=== PATIENT | female | born 1985 | race Caucasian/White ===

== ENCOUNTER 2020-07-10 08:26 | Outpatient (REF) | payer OTHER, SELFPAY | END 2020-07-10 08:27 | disposition home or self-care (01) | LOC: HO.HMGCLDS 08:26 | PROVIDERS: PCP Internal Medicine; Visit Provider Internal Medicine | DX: I10 Essential (primary) hypertension (principal) | CPT/HCPCS: 36415; 84443 ==

== ENCOUNTER 2020-11-18 11:12 | Outpatient (REF) | payer OTHER, SELFPAY ==
[2020-11-18 13:48] LABS: MANUAL DIFF FLAG NO
[2020-11-18 14:03] LABS: Basophils Percent Auto 0.4 % (0-2); Eosinophils Absolute Auto 0.1 X10*3/uL (0.0-0.4); Eosinophils Percent Auto 1.8 % (0-4); Hematocrit 39.4 % (37-47); Hemoglobin 13.1 g/dl (12.0-16.0); Imm Gran Abs Auto 0.04 X10*3/uL (0.00-0.03); Imm Gran Pct Auto 0.5 % (0.0-0.4); Lymphocytes Absolute Auto 2.2 X10*3/uL (1.2-4.9); Lymphocytes Percent Auto 27.5 % (20-40); Mean Corpuscular HGB Conc 33.2 g/dl (31.0-35.0); Mean Corpuscular Hemoglobin 29.2 pg (27.0-33.0); Mean Corpuscular Volume 87.8 fL (80-98); Mean Platelet Volume 10.7 fL (9.4-12.3); Monocytes Absolute Auto 0.5 X10*3/uL (0.1-1.2); Monocytes Percent Auto 5.8 % (2-11); Neutrophils Absolute Auto 5.1 X10*3/uL (2.0-8.3); Platelet Count 295 X10*3/uL (160-400); Red Blood Count 4.49 X10*6/uL (4.20-5.50); Red Cell Distribution Width 12.4 % (11.0-16.0); White Blood Count 7.9 X10*3/uL (4.8-10.8)
[2020-11-18 14:04] LABS: Glucose Urine UA NEG (NEG); Leukocyte Esterase Urine NEG (NEG); Nitrite Urine NEG (NEG); Specific Gravity - Urine >= 1.030 (1.005-1.025); Urine Blood NEG (NEG); Urine Ketones NEG (NEG); Urine Protein NEG (NEG-TRACE)
[2020-11-18 14:09] LABS: Appearance Urine CLEAR; Color Urine YELLOW
[2020-11-18 14:23] LABS: Alanine Aminotransferase 11 U/L (0-31); Albumin Level 4.4 g/dL (3.5-5.0); Alkaline Phosphatase 66 U/L (39-117); Anion Gap 12 (12-20); Aspartate Amino Transferase 12 U/L (5-31); Bilirubin Total 0.5 mg/dL (0.0-1.0); Blood Urea Nitrogen 9 mg/dL (9-16); Calcium 9.1 mg/dL (8.4-10.2); Carbon Dioxide 25 mmol/L (22-29); Chloride 106 mmol/L (96-108); Estimated Glomerular Filt Rate > 60; Glucose Random 92 mg/dL (60-115); Sodium 139 mmol/L (135-145); Total Protein 6.8 g/dL (6.5-8.0); Uric Acid 3.3 mg/dL (2.4-5.7)
[2020-11-18 14:29] LABS: Creatinine Urine 146.57 mg/dL; Protein/Creatinine Ratio, Ur 0.05 (<0.2); Total Protein Urine Random 8 mg/dL (<12)
[2020-11-18 14:32] LABS: Mucus Urine TRACE /LPF; RBC Urine 0 /HPF (0); Squamous Epithelial Cell Urine 2+ /LPF; WBC Urine 0 /HPF (0-4)
[2020-11-18 14:45] LABS: Vitamin D 25-OH Total 14.4 ng/mL (>30)
== END 2020-11-18 11:13 | disposition home or self-care (01) ==
LOC: HO.HMGCLDS 11:12
PROVIDERS: Visit Provider Internal Medicine
DX: I10 Essential (primary) hypertension (principal)
CPT/HCPCS: 36415; 80053; 81001; 82306; 84156; 84550; 85025

== ENCOUNTER 2021-06-23 07:36 | Outpatient (REF) | payer OTHER, SELFPAY ==
[2021-06-23 11:19] LABS: MANUAL DIFF FLAG NO
[2021-06-23 11:22] LABS: Basophils Percent Auto 0.4 % (0-2); Eosinophils Absolute Auto 0.1 X10*3/uL (0.0-0.4); Eosinophils Percent Auto 1.6 % (0-4); Hematocrit 40.9 % (37.0-47.0); Hemoglobin 13.4 g/dl (12.0-16.0); Imm Gran Abs Auto 0.02 X10*3/uL (0.00-0.03); Imm Gran Pct Auto 0.3 % (0.0-0.4); Lymphocytes Absolute Auto 2.2 X10*3/uL (1.2-4.9); Lymphocytes Percent Auto 32.3 % (20-40); Mean Corpuscular HGB Conc 32.8 g/dl (31.0-35.0); Mean Corpuscular Hemoglobin 29.1 pg (27.0-33.0); Mean Corpuscular Volume 88.9 fL (80.0-98.0); Mean Platelet Volume 11.2 fL (9.4-12.3); Monocytes Absolute Auto 0.5 X10*3/uL (0.1-1.2); Monocytes Percent Auto 7.1 % (2-11); Neutrophils Absolute Auto 3.9 x10*3/uL (2.0-8.3); Neutrophils Percent Auto 58.3 % (45-73); Platelet Count 290 X10*3/uL (160-400); Red Cell Distribution Width 12.7 % (11.0-16.0); White Blood Count 6.7 X10*3/uL (4.8-10.8)
[2021-06-23 11:57] LABS: Alanine Aminotransferase 10 U/L (0-31); Albumin Level 4.1 g/dL (3.5-5.0); Alkaline Phosphatase 75 U/L (39-117); Anion Gap 15 (12-20); Aspartate Amino Transferase 13 U/L (5-31); Bilirubin Total 0.5 mg/dL (0.0-1.0); Blood Urea Nitrogen 9 mg/dL (9-16); Calcium 9.2 mg/dL (8.4-10.2); Carbon Dioxide 22 mmol/L (22-29); Chloride 107 mmol/L (96-108); Cholesterol 182 mg/dL; Estimated Glomerular Filt Rate > 60; Glucose Fasting 96 mg/dL (60-99); HDL Cholesterol 71 mg/dL; LDL Cholesterol Calculated 99 mg/dl; Potassium 4.6 mmol/L (3.3-5.1); Sodium 139 mmol/L (135-145); Total Protein 6.7 g/dL (6.5-8.0); Triglycerides 63 mg/dL
== END 2021-06-23 07:37 | disposition home or self-care (01) ==
LOC: HO.HMGCLDS 07:36
PROVIDERS: PCP Internal Medicine; Visit Provider Internal Medicine
DX: Z00.01 Encounter for general adult medical examination with abnormal findings (principal); F41.9 Anxiety disorder, unspecified; I10 Essential (primary) hypertension
CPT/HCPCS: 36415; 80053; 80061; 85025

== ENCOUNTER 2021-12-10 14:40 | Outpatient (REF) | payer OTHER, SELFPAY ==
[2021-12-10 16:54] LABS: Alanine Aminotransferase 10 U/L (0-31); Albumin Level 4.3 g/dL (3.5-5.0); Alkaline Phosphatase 79 U/L (39-117); Anion Gap 12 (12-20); Aspartate Amino Transferase 14 U/L (5-31); Bilirubin Total 0.8 mg/dL (0.0-1.0); Blood Urea Nitrogen 8 mg/dL (9-16); Calcium 9.6 mg/dL (8.4-10.2); Carbon Dioxide 26 mmol/L (22-29); Chloride 106 mmol/L (96-108); Estimated Glomerular Filt Rate > 60; Glucose Random 87 mg/dL (60-115); Potassium 4.6 mmol/L (3.3-5.1); Sodium 139 mmol/L (135-145)
== END 2021-12-10 14:41 | disposition home or self-care (01) ==
LOC: HO.HMGCLDS 14:40
PROVIDERS: PCP Internal Medicine; Visit Provider Internal Medicine
DX: I10 Essential (primary) hypertension (principal)
CPT/HCPCS: 36415; 80053

== ENCOUNTER 2021-12-30 11:38 | Outpatient (REF) | payer OTHER, SELFPAY ==
[2021-12-30 12:29] LABS: Influenza A PCR NEGATIVE (Negative); Influenza B PCR NEGATIVE (Negative); Resp Syncy Virus RNA Qual PCR NEGATIVE (Negative); SARS COV2 PCR INHOUSE POSITIVE (Negative)
== END 2021-12-30 11:39 | disposition home or self-care (01) ==
LOC: HO.LNP 11:38
PROVIDERS: Visit Provider Internal Medicine
DX: Z20.822 Contact with and (suspected) exposure to COVID-19 (principal); M79.10 Myalgia, unspecified site; R51.9 Headache, unspecified; R68.83 Chills (without fever)
CPT/HCPCS: 0241U

== ENCOUNTER 2023-03-15 14:02 | Outpatient (AMB) | payer OTHER, SELFPAY ==
--- NOTE | 2023-03-15 14:04 | MHC.PC.OV ---
Vital Signs 03/15/23 14:09 Height 5 ft 6 in Weight 194 lb 6 oz BMI 31.4 BP 124/86 Blood Pressure Location Lt brachial Position Sitting Pulse 74 Pulse Source Pulse Oximeter Pulse Oximetry (%) 98 Oxygen Delivery Method Room Air Intake Visit Reasons: 6 month follow up Allergies No Known Allergies Allergy (Verified 03/15/23 14:10) Medication List - Last Reconciled 03/15/23 by Selene Varela MD losartan 100 mg PO DAILY 90 days nirmatrelvir-ritonavir 300 mg (150 mg x 2)-100 mg take TWO 150 mg tablets of nirmatrelvir with ONE 100 mg tablet of ritonavir twice daily for 5 days PO Tobacco use date assessed: 03/15/23 Dental Screening Dental Screen Date: 03/15/23 Did you have a dental visit in the last 12 months?: Yes Did you have a dental problem in the last 6 months where you did not have access to dental care?: No Was dental information given to patient?: No HPI 6 month follow up HPI Details Patient is 37-year-old female who was last seen May of last year and then did not come in for follow-up. She is due for labs explained to patient that it is highly important that periodic labs to monitor side effect of the medication otherwise it can cause more damage than good. Her blood pressure is controlled she is taking medication regularly. She is complaining of not been able to lose weight her BMI is 31.4 I have added thyroid test to the labs. Patient will return in 3 months for follow-up appointment and will go over the labs at that time [facility] Medical History Hypertension, essential Surgical History No pertinent past surgical history Social History Housing: House Alcohol intake: current Alcohol intake frequency: a few times a month Patient Tobacco Use Status: Never used Tobacco e-Cigarette/Vaping Use: Never Used Second Hand Smoke Exposure: No service: No Current occupational status: employed Cognitive needs: No Hearing needs: No Vision needs: No Questionnaire PHQ-9 Over the last 2 weeks, how often have you been bothered by any of the following problems? 1. Little interest or pleasure in doing things: not at all 2. Feeling down, depressed, or hopeless: not at all 3. Trouble falling or staying asleep, or sleeping too much: several days 4. Feeling tired or having little energy: several days 5. Poor appetite or overeating: several days 6. Feeling bad about yourself - or that you are a failure or have let yourself or your family down: not at all 7. Trouble concentrating on things, such as reading the newspaper or watching television: not at all 8. Moving or speaking so slowly that other people could have noticed. Or the opposite - being so fidgety or restless that you have been moving around a lot more than usual: not at all 9. Thoughts that you would be better off or of hurting yourself in some way: not at all Total score: 3 Depression Screening Interpretation: Negative 27556 - PHQ-9 Billing: Yes Source: Developed by Drs. Tony Kuo, Gertrude Ugalde, Vignesh Collazo and colleagues, with an educational gianni from [employer]. Thrive Questionnaire Date Thrive assessed: 03/15/23 I am a: Patient What is your living situation today?: I have a steady place to live Within the past 12 months, did the food you bought not last and you didn't have the money to get more?: Never true Within the past 12 months, did you worry whether your food would run out before you got money to buy more?: Never true Do you have trouble paying for medicines?: No Do you have trouble getting transportation to medical appointments?: No Do you have trouble paying your heating and electricity bill?: No Do you have trouble taking care of your child, family member or friend?: No Do you have trouble with day-to-day activities such as bathing, preparing meals, shopping, managing finances, etc.?: No Are you currently unemployed and looking for a job?: No Are you interested in more education?: No AUDIT C Alcohol Use Questionnaire (AUDIT-C) 1. How often do you have a drink containing alcohol?: Never 3. How often do you have six or more drinks on one occasion?: Never Total Score: 0 Score Reviewed/Action Taken: Yes PRINCESS-7 AMB Questionnaire PRINCESS-7 Date PRINCESS - 7 assessed: 03/15/23 Feeling nervous, anxious, or on edge: 0 = Not at all Not being able to stop or control worryin = Not at all Worrying too much about different things: 0 = Not at all Trouble relaxin = Not at all Being so restless that it is hard to sit still: 0 = Not at all Becoming easily annoyed or irritable: 0 = Not at all Feeling afraid as if something awful might happen: 0 = Not at all Total PRINCESS-7 score (0-4 normal; 5-9 mild; 10-14 moderate; 15-21 severe): 0 Source: Developed by Drs. Tony Kuo, Gertrude Ugalde, Vignesh Collazo and colleagues, with an educational gianni from [employer]. PRINCESS-7 Assessment Billing PRINCESS-7 Assessment Tool: PRINCESS-7 Assessment 93421 Review of Systems Const Denies chills and Denies fever(s) ENT Denies epistaxis and Denies nasal discharge Card Denies chest pain Resp Denies chest congestion, Denies cough and Denies hemoptysis GI Denies diarrhea and Denies nausea Skin/Breast Denies rash Neuro Reports no additional complaints Psych Reports no additional complaints Endo Reports no additional complaints Physical exam (Primary Care) Vital Signs: Last Vital Signs Pulse 74 03/15/23 14:09 BP 124/86 03/15/23 14:09 Pulse Ox 98 03/15/23 14:09 Oxygen Delivery Method Room Air 03/15/23 14:09 BMI result Body Mass Index 31.4 Tobacco/Smoking Status: Tobacco use Status Tobacco use date assessed 03/15/23 03/15/23 14:11 Patient Tobacco Use Status Never used Tobacco 03/15/23 14:06 e-Cigarette/Vaping Use Never Used 03/15/23 14:06 PHQ-9: PHQ-9 Score PHQ-9: Total score 3 03/15/23 14:35 Depression Screening Interpretation: Negative Thrive Assessment: Date of Thrive Assessment Date Thrive assessed 03/15/23 03/15/23 14:35 Const General: cooperative, comfortable and no acute distress Orientation/consciousness: patient oriented x3 HENMT Head: Yes normocephalic Eyes General: appearance normal, both eyes and all related structures Neck Neck: Yes supple Resp Effort & Inspection: normal respiratory effort, no cough and no stridor Cardio Rhythm: regular rhythm Heart sounds: S1 normal heart sound present and S2 normal heart sound present Skin General skin exam: turgor normal Neuro General: patient oriented x3, tone normal and moves all extremities Extrem Right lower extremity: no edema Left lower extremity: no edema Assessment and Plan Assessment & Plan (1) Hypertension, essential: Code(s): I10 - Essential (primary) hypertension (2) Obesity due to excess calories: Code(s): E66.09 - Other obesity due to excess calories Plan Patient is 37-year-old female who was last seen May of last year and then did not come in for follow-up. She is due for labs explained to patient that it is highly important that periodic labs to monitor side effect of the medication otherwise it can cause more damage than good. Her blood pressure is controlled she is taking medication regularly. She is complaining of not been able to lose weight her BMI is 31.4 I have added thyroid test to the labs. Patient will return in 3 months for follow-up appointment and will go over the labs at that time Orders: Orders Comprehensive [place]. Panel Fast Today E66.09 - Other obesity due to excess calories, I10 - Essential (primary) hypertension Lipid Panel Today E66.09 - Other obesity due to excess calories, I10 - Essential (primary) hypertension TSH reflex Free T4 Today E66.09 - Other obesity due to excess calories, I10 - Essential (primary) hypertension Complete Blood Count Auto Diff Today E66.09 - Other obesity due to excess calories, I10 - Essential (primary) hypertension Medications: Refilled losartan 100 mg PO DAILY 90 tabs 0RF 90 days I10 - Essential (primary) hypertension Coding Level of Care Code Est Pt Level 3 (27245) Diagnoses Hypertension, essential I10 Obesity due to excess calories E66.09 Additional Codes PRINCESS-7 Assessment Billing - PRINCESS-7 Assessment Tool: PRINCESS-7 Assessment [id number] ([id number])
[2023-03-15 14:09] VITALS: BP 124/86; PULSE 74; O2SAT 98; BMI 31.4
== END 2023-03-15 16:01 | disposition home or self-care (01) ==
PROVIDERS: PCP Internal Medicine; Visit Provider Internal Medicine
DX: I10 Essential (primary) hypertension (principal); E66.09 Other obesity due to excess calories; Z68.31 Body mass index [BMI] 31.0-31.9, adult
CPT/HCPCS: 99213

== ENCOUNTER 2023-03-16 08:51 | Outpatient (REF) | payer OTHER, SELFPAY ==
[2023-03-16 11:21] LABS: MANUAL DIFF FLAG NO
[2023-03-16 11:47] LABS: Basophils Percent Auto 0.6 % (0-2); Eosinophils Absolute Auto 0.1 X10*3/uL (0.0-0.4); Hematocrit 39.8 % (37.0-47.0); Hemoglobin 13.7 g/dl (12.0-16.0); Imm Gran Abs Auto 0.03 X10*3/uL (0.00-0.03); Imm Gran Pct Auto 0.4 % (0.0-0.4); Lymphocytes Absolute Auto 1.9 X10*3/uL (1.2-4.9); Lymphocytes Percent Auto 26.7 % (20-40); Mean Corpuscular HGB Conc 34.4 g/dl (31.0-35.0); Mean Corpuscular Hemoglobin 30.2 pg (27.0-33.0); Mean Corpuscular Volume 87.9 fL (80.0-98.0); Monocytes Absolute Auto 0.5 X10*3/uL (0.1-1.2); Neutrophils Absolute Auto 4.5 x10*3/uL (2.0-8.3); Neutrophils Percent Auto 63.3 % (45-73); Platelet Count 259 X10*3/uL (160-400); Red Blood Count 4.53 X10*6/uL (4.20-5.50); Red Cell Distribution Width 12.1 % (11.0-16.0)
[2023-03-16 12:34] LABS: Alanine Aminotransferase 10 U/L (0-31); Albumin Level 4.1 g/dL (3.5-5.0); Alkaline Phosphatase 76 U/L (39-117); Anion Gap 9 (12-20); Aspartate Amino Transferase 15 U/L (5-31); Bilirubin Total 0.7 mg/dL (0.0-1.0); Blood Urea Nitrogen 12 mg/dL (9-16); Calcium 9.2 mg/dL (8.4-10.2); Carbon Dioxide 26 mmol/L (22-29); Chloride 108 mmol/L (96-108); Cholesterol 166 mg/dL (<200); Estimated Glomerular Filt Rate > 60; Glucose Fasting 92 mg/dL (60-99); HDL Cholesterol 55 mg/dL (>40); LDL Cholesterol Calculated 100 mg/dL (<100); Sodium 139 mmol/L (135-145); TSH reflex Free T4 0.97 uIU/mL (0.32-4.0); Total Protein 6.8 g/dL (6.5-8.0); Triglycerides 57 mg/dL (<150)
== END 2023-03-16 08:52 | disposition home or self-care (01) ==
LOC: HO.HMGCLDS 08:51
PROVIDERS: PCP Internal Medicine; Visit Provider Internal Medicine
DX: I10 Essential (primary) hypertension (principal); E66.09 Other obesity due to excess calories
CPT/HCPCS: 36415; 80053; 80061; 84443; 85025

== ENCOUNTER 2023-06-21 08:32 | Outpatient (AMB) | payer OTHER, SELFPAY ==
[2023-06-21 08:34] VITALS: BP 128/82; PULSE 78; O2SAT 99; BMI 31.3
--- NOTE | 2023-06-21 08:34 | MHC.PC.OV ---
Vital Signs 06/21/23 08:34 Height 5 ft 6 in Weight 194 lb BMI 31.3 BP 128/82 Blood Pressure Location Rt brachial Position Sitting Pulse 78 Pulse Source Pulse Oximeter Pulse Oximetry (%) 99 Oxygen Delivery Method Room Air Intake Visit Reasons: 3 month fu Allergies No Known Allergies Allergy (Verified 06/21/23 08:34) Medication List - Last Reconciled 06/21/23 by Selene Varela MD losartan 100 mg PO DAILY 90 days Tobacco use date assessed: 06/21/23 Dental Screening Dental Screen Date: 06/21/23 Did you have a dental visit in the last 12 months?: Yes Did you have a dental problem in the last 6 months where you did not have access to dental care?: No Was dental information given to patient?: Patient has dentist HPI 3 month fu HPI Details Patient is a 37-year-old female came in today for her regular follow-up appointment Patient is taking losartan 100 mg, blood pressure is well controlled She has no side effects, tolerating medications She also offer no complaints today. Labs were done February of this year, reviewed again I have placed order for labs to be done before next visit in 5 months. BMI is still elevated patient is trying to lose weight. REPLACED BY [facility] Medical History Hypertension, essential Surgical History No pertinent past surgical history Social History Housing: House Alcohol intake: current Alcohol intake frequency: a few times a month Patient Tobacco Use Status: Never used Tobacco e-Cigarette/Vaping Use: Never Used Second Hand Smoke Exposure: No service: No Current occupational status: employed Cognitive needs: No Hearing needs: No Vision needs: No Questionnaire PHQ-9 Over the last 2 weeks, how often have you been bothered by any of the following problems? 1. Little interest or pleasure in doing things: not at all 2. Feeling down, depressed, or hopeless: not at all 3. Trouble falling or staying asleep, or sleeping too much: not at all 4. Feeling tired or having little energy: not at all 5. Poor appetite or overeating: not at all 6. Feeling bad about yourself - or that you are a failure or have let yourself or your family down: not at all 7. Trouble concentrating on things, such as reading the newspaper or watching television: not at all 8. Moving or speaking so slowly that other people could have noticed. Or the opposite - being so fidgety or restless that you have been moving around a lot more than usual: not at all 9. Thoughts that you would be better off or of hurting yourself in some way: not at all Total score: 0 Depression Screening Interpretation: Negative Depression Screening Done: Yes [id number] - PHQ-9 Billing: Yes Source: Developed by Drs. Tony Kuo, Gertrude Ugalde, Vignesh Collazo and colleagues, with an educational gianni from [employer]. Thrive Questionnaire Date Thrive assessed: 06/21/23 I am a: Patient What is your living situation today?: I have a steady place to live Within the past 12 months, did the food you bought not last and you didn't have the money to get more?: Never true Within the past 12 months, did you worry whether your food would run out before you got money to buy more?: Never true Do you have trouble paying for medicines?: No Do you have trouble getting transportation to medical appointments?: No Do you have trouble paying your heating and electricity bill?: No Do you have trouble taking care of your child, family member or friend?: No Do you have trouble with day-to-day activities such as bathing, preparing meals, shopping, managing finances, etc.?: No Are you currently unemployed and looking for a job?: No Are you interested in more education?: No Please select the resources that you would like help with: None Currently or been in a relationship where the following occur: no concerns reported AUDIT C Alcohol Use Questionnaire (AUDIT-C) 1. How often do you have a drink containing alcohol?: Monthly or less 2. How many drinks containing alcohol do you have on a typical day when you are drinking?: 1 or 2 3. How often do you have six or more drinks on one occasion?: Never Total Score: 1 Score Reviewed/Action Taken: No PRINCESS-7 AMB Questionnaire PRINCESS-7 Date PRINCESS - 7 assessed: 06/21/23 Feeling nervous, anxious, or on edge: 1 = Several days Not being able to stop or control worryin = Not at all Worrying too much about different things: 1 = Several days Trouble relaxin = Not at all Being so restless that it is hard to sit still: 0 = Not at all Becoming easily annoyed or irritable: 1 = Several days Feeling afraid as if something awful might happen: 0 = Not at all Total PRINCESS-7 score (0-4 normal; 5-9 mild; 10-14 moderate; 15-21 severe): 3 Source: Developed by Drs. Tony Kuo, Gertrude Ugalde, Vignesh Collazo and colleagues, with an educational gianni from [employer]. PRINCESS-7 Assessment Billing PRINCESS-7 Assessment Tool: PRINCESS-7 Assessment 28034 Review of Systems Const Denies chills and Denies fever(s) ENT Denies epistaxis and Denies nasal discharge Card Denies chest pain Resp Denies chest congestion, Denies cough and Denies hemoptysis GI Denies diarrhea and Denies nausea Skin/Breast Denies rash Neuro Reports no additional complaints Psych Reports no additional complaints Endo Reports no additional complaints Physical exam (Primary Care) Vital Signs: Last Vital Signs Pulse 78 06/21/23 08:34 BP 128/82 06/21/23 08:34 Pulse Ox 99 06/21/23 08:34 Oxygen Delivery Method Room Air 06/21/23 08:34 BMI result Body Mass Index 31.3 Tobacco/Smoking Status: Tobacco use Status Tobacco use date assessed 06/21/23 06/21/23 08:35 Patient Tobacco Use Status Never used Tobacco 06/21/23 08:35 e-Cigarette/Vaping Use Never Used 06/21/23 08:35 PHQ-9: PHQ-9 Score PHQ-9: Total score 0 06/21/23 08:57 Depression Screening Interpretation: Negative Thrive Assessment: Date of Thrive Assessment Date Thrive assessed 06/21/23 06/21/23 08:57 Currently or been in a relationship where the following occur: no concerns reported Const General: cooperative, comfortable and no acute distress Orientation/consciousness: patient oriented x3 HENMT Head: Yes normocephalic Eyes General: appearance normal, both eyes and all related structures Neck Neck: Yes supple Resp Effort & Inspection: normal respiratory effort, no cough and no stridor Cardio Rhythm: regular rhythm Heart sounds: S1 normal heart sound present and S2 normal heart sound present Skin General skin exam: turgor normal Neuro General: patient oriented x3, tone normal and moves all extremities Extrem Right lower extremity: no edema Left lower extremity: no edema Assessment and Plan Assessment & Plan (1) Hypertension, essential: Code(s): I10 - Essential (primary) hypertension (2) Obesity due to excess calories: Code(s): E66.09 - Other obesity due to excess calories Qualifiers: Body mass index: BMI 31.0-31.9 Obesity classification: adult class 1 (BMI 30 - 34.9) Serious obesity comorbidity presence: with serious comorbidity Qualified Code(s): E66.09 - Other obesity due to excess calories; Z68.31 - Body mass index [BMI] 31.0-31.9, adult Plan Patient is a 37-year-old female came in today for her regular follow-up appointment Patient is taking losartan 100 mg, blood pressure is well controlled She has no side effects, tolerating medications She also offer no complaints today. Labs were done February of this year, reviewed again I have placed order for labs to be done before next visit in 5 months. BMI is still elevated patient is trying to lose weight. We checked thyroid with last set of labs and it is within normal limit Orders: Orders Comprehensive Met. Panel 4 Months E66.09 - Other obesity due to excess calories, I10 - Essential (primary) hypertension Complete Blood Count Auto Diff 4 Months E66.09 - Other obesity due to excess calories, I10 - Essential (primary) hypertension Coding Level of Care Code Est Pt Level 3 (34221) Diagnoses Hypertension, essential I10 Class 1 obesity due to excess calories with serious comorbidity and body mass index (BMI) of 31.0 to 31.9 in adult E66.09; Z68.31 Body mass index: BMI 31.0-31.9 Obesity classification: adult class 1 (BMI 30 - 34.9) Serious obesity comorbidity presence: with serious comorbidity Additional Codes PRINCESS-7 Assessment Billing - PRINCESS-7 Assessment Tool: PRINCESS-7 Assessment [id number] ([id number])
== END 2023-06-21 08:47 | disposition home or self-care (01) ==
PROVIDERS: PCP Internal Medicine; Visit Provider Internal Medicine
DX: I10 Essential (primary) hypertension (principal); E66.09 Other obesity due to excess calories; Z68.31 Body mass index [BMI] 31.0-31.9, adult
CPT/HCPCS: 99213

== ENCOUNTER 2024-03-19 09:23 | Outpatient (REF) | payer OTHER, SELFPAY ==
[2024-03-19 10:22] LABS: MANUAL DIFF FLAG NO
[2024-03-19 10:40] LABS: Basophils Percent Auto 0.4 % (0-2); Eosinophils Absolute Auto 0.1 X10*3/uL (0.0-0.4); Eosinophils Percent Auto 1.5 % (0-4); Hematocrit 41.7 % (37.0-47.0); Hemoglobin 14.4 g/dl (12.0-16.0); Imm Gran Abs Auto 0.03 X10*3/uL (0.00-0.03); Imm Gran Pct Auto 0.4 % (0.0-0.4); Lymphocytes Absolute Auto 1.4 X10*3/uL (1.2-4.9); Lymphocytes Percent Auto 18.9 % (20-40); Mean Corpuscular HGB Conc 34.5 g/dl (31.0-35.0); Mean Corpuscular Hemoglobin 29.8 pg (27.0-33.0); Mean Corpuscular Volume 86.3 fL (80.0-98.0); Mean Platelet Volume 10.5 fL (9.4-12.3); Monocytes Absolute Auto 0.5 X10*3/uL (0.1-1.2); Monocytes Percent Auto 6.4 % (2-11); Neutrophils Absolute Auto 5.4 x10*3/uL (2.0-8.3); Neutrophils Percent Auto 72.4 % (45-73); Platelet Count 301 X10*3/uL (160-400); Red Blood Count 4.83 X10*6/uL (4.20-5.50); Red Cell Distribution Width 11.9 % (11.0-16.0); White Blood Count 7.5 X10*3/uL (4.8-10.8)
[2024-03-19 11:10] LABS: Alanine Aminotransferase 6 U/L (0-31); Albumin Level 4.3 g/dL (3.5-5.0); Alkaline Phosphatase 90 U/L (39-117); Anion Gap 9 (12-20); Aspartate Amino Transferase 15 U/L (5-31); Bilirubin Total 0.7 mg/dL (0.0-1.0); Blood Urea Nitrogen 13 mg/dL (9-16); Calcium 9.3 mg/dL (8.4-10.2); Carbon Dioxide 27 mmol/L (22-29); Chloride 107 mmol/L (96-108); Estimated Average Glucose 85 mg/dL; Estimated Glomerular Filt Rate > 60; Glucose Random 98 mg/dL (60-115); Hemoglobin A1c % 4.6 % (<6.0); Potassium 4.3 mmol/L (3.3-5.1); Sodium 139 mmol/L (135-145); Total Protein 6.9 g/dL (6.5-8.0)
[2024-03-19 11:20] LABS: Cholesterol 171 mg/dL (<200); HDL Cholesterol 53 mg/dL (>40); LDL Cholesterol Calculated 105 mg/dL (<100); Triglycerides 68 mg/dL (<150)
[2024-03-19 11:23] LABS: Thyroid Stimulating Hormone 0.95 uIU/mL (0.32-4.0)
[2024-03-19 11:36] LABS: Folate 10.6 ng/mL (> or = 4.0); Vitamin B12 511 pg/mL (200-900)
== END 2024-03-19 09:24 | disposition home or self-care (01) ==
LOC: HO.HMGCLDS 09:23
PROVIDERS: PCP Internal Medicine; Visit Provider Internal Medicine
DX: E66.3 Overweight (principal); E55.9 Vitamin D deficiency, unspecified; E34.9 Endocrine disorder, unspecified; I10 Essential (primary) hypertension; E66.09 Other obesity due to excess calories
CPT/HCPCS: 36415; 80053; 80061; 82607; 82746; 83036; 84443; 85025

== ENCOUNTER 2024-03-27 10:33 | Outpatient (AMB) | payer OTHER, SELFPAY ==
[2024-03-27 10:37] VITALS: BP 120/82; PULSE 85; O2SAT 98; BMI 31.4
--- NOTE | 2024-03-27 10:37 | A.OFFPC_ITS ---
Vital Signs 03/27/24 10:37 Height 5 ft 6 in Weight 194 lb 5 oz BMI 31.4 BP 120/82 Blood Pressure Location Lt brachial Position Sitting Pulse 85 Pulse Source Pulse Oximeter Pulse Oximetry (%) 98 Oxygen Delivery Method Room Air Intake Visit Reasons: PE Allergies No Known Allergies Allergy (Verified 03/27/24 10:40) Medication List - Last Reconciled 03/27/24 by Selene Varela MD losartan 100 mg PO DAILY 90 days Tobacco use date assessed: 03/27/24 Dental Screening Dental Screen Date: 03/27/24 Did you have a dental visit in the last 12 months?: Yes Did you have a dental problem in the last 6 months where you did not have access to dental care?: No Was dental information given to patient?: Patient has dentist HPI PE HPI Details Patient is a 38-year-old female with a history of hypertension and obesity Came in for physical exam Offer no new complaints Taking losartan without any concerns Blood pressure is well-controlled Labs done February of this year reviewed Patient have appointment with OBGYN, mammogram will be through them. She will return in 6 months for follow-up appointment on blood pressure and labs will be needed before visit order placed [facility] Medical History Hypertension, essential Surgical History No pertinent past surgical history Social History Housing: House Alcohol intake: current Alcohol intake frequency: a few times a month Patient Tobacco Use Status: Never used Tobacco e-Cigarette/Vaping Use: Never Used Second Hand Smoke Exposure: No service: No Current occupational status: employed Cognitive needs: No Hearing needs: No Vision needs: No Questionnaire PHQ-9 Over the last 2 weeks, how often have you been bothered by any of the following problems? 1. Little interest or pleasure in doing things: not at all 2. Feeling down, depressed, or hopeless: not at all 3. Trouble falling or staying asleep, or sleeping too much: not at all 4. Feeling tired or having little energy: not at all 5. Poor appetite or overeating: not at all 6. Feeling bad about yourself - or that you are a failure or have let yourself or your family down: not at all 7. Trouble concentrating on things, such as reading the newspaper or watching television: not at all 8. Moving or speaking so slowly that other people could have noticed. Or the opposite - being so fidgety or restless that you have been moving around a lot more than usual: not at all 9. Thoughts that you would be better off or of hurting yourself in some way: not at all Total score: 0 Depression Screening Interpretation: Negative Depression Screening Done: Yes 85337 - PHQ-9 Billing: Yes Source: Developed by Drs. Tony Kuo, Gertrude Ugalde, Vignesh Collazo and colleagues, with an educational gianni from [employer]. Thrive Questionnaire Date Thrive assessed: 03/27/24 I am a: Patient What is your living situation today?: I have a steady place to live Within the past 12 months, did the food you bought not last and you didn't have the money to get more?: Often true Within the past 12 months, did you worry whether your food would run out before you got money to buy more?: I choose not to answer this question Do you have trouble paying for medicines?: No Do you have trouble getting transportation to medical appointments?: No Do you have trouble paying your heating and electricity bill?: No Do you have trouble taking care of your child, family member or friend?: No Do you have trouble with day-to-day activities such as bathing, preparing meals, shopping, managing finances, etc.?: No Are you currently unemployed and looking for a job?: No Are you interested in more education?: No Please select the resources that you would like help with: None Currently or been in a relationship where the following occur: No concerns reported THRIVE Score: 1 AUDIT C Alcohol Use Questionnaire (AUDIT-C) 1. How often do you have a drink containing alcohol?: Monthly or less 2. How many drinks containing alcohol do you have on a typical day when you are drinking?: 1 or 2 3. How often do you have six or more drinks on one occasion?: Never Total Score: 1 Score Reviewed/Action Taken: Yes PRINCESS-7 AMB Questionnaire PRINCESS-7 Date PRINCESS - 7 assessed: 03/27/24 Feeling nervous, anxious, or on edge: 0 = Not at all Not being able to stop or control worryin = Not at all Worrying too much about different things: 0 = Not at all Trouble relaxin = Not at all Being so restless that it is hard to sit still: 0 = Not at all Becoming easily annoyed or irritable: 0 = Not at all Feeling afraid as if something awful might happen: 0 = Not at all Total PRINCESS-7 score (0-4 normal; 5-9 mild; 10-14 moderate; 15-21 severe): 0 Source: Developed by Drs. Tony Kuo, Gertrude Ugalde, Vignesh Collazo and colleagues, with an educational gianni from [employer]. PRINCESS-7 Assessment Billing PRINCESS-7 Assessment Tool: PRINCESS-7 Assessment 15821 Review of Systems Const Denies chills, Denies fever(s) and Denies headache(s) Eyes Denies blurry vision ENT Denies headache(s), Denies nasal discharge, Denies nasal obstruction, Denies odynophagia and Denies sinus pain Card Denies chest pain at rest and Denies chest pain with activity Resp Denies cough and Denies hemoptysis GI Denies diarrhea, Denies odynophagia, Denies vomiting and Denies hematemesis Reports as per HPI Musc Denies abnormal gait Skin/Breast Reports as per HPI Neuro Denies Neuro-related abnormal movements, Denies Abnormal speech present, Denies abnormal gait, Denies headache(s) and Denies Sensory deficit (Neuro) Psych Denies mood swings and Denies paranoia Endo Reports as per HPI Oleg/Lymph Reports as per HPI Aller/Immun Reports as per HPI Physical exam (Primary Care) Vital Signs: Last Vital Signs Pulse 85 03/27/24 10:37 BP 120/82 03/27/24 10:37 Pulse Ox 98 03/27/24 10:37 Oxygen Delivery Method Room Air 03/27/24 10:37 BMI result Body Mass Index 31.4 Tobacco/Smoking Status: Tobacco use Status Tobacco use date assessed 03/27/24 03/27/24 10:40 Patient Tobacco Use Status Never used Tobacco 03/27/24 10:40 e-Cigarette/Vaping Use Never Used 03/27/24 10:40 PHQ-9: PHQ-9 Score PHQ-9: Total score 0 03/27/24 10:40 Depression Screening Interpretation: Negative Thrive Assessment: Date of Thrive Assessment Date Thrive assessed 03/27/24 03/27/24 10:40 Currently or been in a relationship where the following occur: No concerns reported Const General: cooperative, comfortable and no acute distress Orientation/consciousness: patient oriented x3 HENMT Head: Yes normocephalic and Yes atraumatic Eyes General: appearance normal, both eyes and all related structures Pupils: Equal, round and reactive pupils present EOM: EOMs intact bilaterally Neck Neck: Yes supple and No lymphadenopathy Thyroid: Thyroid normal Lymphatic: no lymphadenopathy noted Resp Effort & Inspection: normal respiratory effort and able to speak in complete se ntences Auscultation: clear to auscultation bilaterally Cardio Heart sounds: S1 normal heart sound present and S2 normal heart sound present GI Palpation (GI): Soft to palpation and nontender Auscultation: normal bowel sounds General: Yes no CVA tenderness Back/Spine/Pelvis Back: no CVA tenderness Skin General skin exam: elasticity normal and turgor normal Neuro General: patient oriented x3 and gait normal Cranial nerves: Yes Equal, round and reactive pupils present Speech: No Abnormal speech present Sensory Exam: No Sensory deficit (Neuro) Coordination: tandem gait normal and Romberg test negative Extrem General: Yes normal exam except as noted and No edema Assessment and Plan Assessment & Plan (1) Adult general medical exam: Code(s): Z00.00 - Encounter for general adult medical examination without abnormal findings (2) Hypertension: Code(s): I10 - Essential (primary) hypertension Qualifiers: Hypertension type: essential hypertension Qualified Code(s): I10 - Essential (primary) hypertension (3) BMI 31.0-31.9,adult: Code(s): Z68.31 - Body mass index [BMI] 31.0-31.9, adult Plan Patient is a 38-year-old female with a history of hypertension and obesity Came in for physical exam Offer no new complaints Taking losartan without any concerns Blood pressure is well-controlled Labs done February of this year reviewed Patient have appointment with OBGYN, mammogram will be through them. She will return in 6 months for follow-up appointment on blood pressure and labs will be needed before visit order placed Orders: Orders Complete Blood Count Auto Diff 6 Months I10 - Essential (primary) hypertension, Z00.00 - Encounter for general adult medical examination without abnormal findings Comprehensive [place]. Panel Fast 6 Months I10 - Essential (primary) hypertension, Z00.00 - Encounter for general adult medical examination without abnormal findings Lipid Panel 6 Months I10 - Essential (primary) hypertension, Z00.00 - Encounter for general adult medical examination without abnormal findings Medications: Refilled losartan 100 mg PO DAILY 90 tabs 0RF 90 days I10 - Essential (primary) hype rtension Coding Level of Care Code Est Pt Prev Care 40-64y(03580) Diagnoses Adult general medical exam Z00.00 Essential hypertension I10 Hypertension type: essential hypertension BMI 31.0-31.9,adult Z68.31 Additional Codes PRINCESS-7 Assessment Billing - PRINCESS-7 Assessment Tool: PRINCESS-7 Assessment 38047 ([id number])
== END 2024-03-27 11:01 | disposition home or self-care (01) ==
PROVIDERS: PCP Internal Medicine; Visit Provider Internal Medicine
DX: Z00.00 Encounter for general adult medical examination without abnormal findings (principal); I10 Essential (primary) hypertension; Z68.31 Body mass index [BMI] 31.0-31.9, adult; E66.9 Obesity, unspecified
CPT/HCPCS: 99396

== ENCOUNTER 2024-08-02 09:22 | Outpatient (REF) | payer OTHER, SELFPAY ==
[2024-08-07 15:29] LABS: Herpes Simplex Type 2 IgG <0.90 index
== END 2024-08-02 09:23 | disposition home or self-care (01) ==
LOC: HO.HMGCLDS 09:22
PROVIDERS: PCP Internal Medicine; Visit Provider Internal Medicine
DX: S30.824A Blister (nonthermal) of vagina and vulva, initial encounter (principal)
CPT/HCPCS: 36415; 86695; 86696

== ENCOUNTER 2024-08-15 08:15 | Outpatient (AMB) | payer OTHER, SELFPAY ==
--- NOTE | 2024-08-15 09:26 | MHC.PC.OV ---
Intake Visit Reasons: cold sore, medication Allergies No Known Allergies Allergy (Verified 08/15/24 09:27) Tobacco use date assessed: 03/27/24 Dental Screening Dental Screen Date: 03/27/24 ON LICENSE OF [facility] Medical History Hypertension, essential Surgical History No pertinent past surgical history Social History Housing: House Alcohol intake: current Alcohol intake frequency: a few times a month Patient Tobacco Use Status: Never used Tobacco e-Cigarette/Vaping Use: Never Used Second Hand Smoke Exposure: No service: No Current occupational status: employed Cognitive needs: No Hearing needs: No Vision needs: No Questionnaire Thrive Questionnaire Date Thrive assessed: 03/27/24 I am a: Patient What is your living situation today?: I have a steady place to live Within the past 12 months, did the food you bought not last and you didn't have the money to get more?: Often true Within the past 12 months, did you worry whether your food would run out before you got money to buy more?: I choose not to answer this question Do you have trouble paying for medicines?: No Do you have trouble getting transportation to medical appointments?: No Do you have trouble paying your heating and electricity bill?: No Do you have trouble taking care of your child, family member or friend?: No Do you have trouble with day-to-day activities such as bathing, preparing meals, shopping, managing finances, etc.?: No Are you currently unemployed and looking for a job?: No Are you interested in more education?: No Please select the resources that you would like help with: None Currently or been in a relationship where the following occur: No concerns reported THRIVE Score: 1 AUDIT C Alcohol Use Questionnaire (AUDIT-C) 2. How many drinks containing alcohol do you have on a typical day when you are drinking?: 1 or 2 3. How often do you have six or more drinks on one occasion?: Never Total Score: 0 PRINCESS-7 AMB Questionnaire PRINCESS-7 Date PRINCESS - 7 assessed: 03/27/24 Source: Developed by Drs. Tony L. AyaanGertrude moses Kurt Kroenke and colleagues, with an educational gianni from [employer]. Physical exam (Primary Care) Tobacco/Smoking Status: Tobacco use Status Tobacco use date assessed 03/27/24 03/27/24 10:40 Patient Tobacco Use Status Never used Tobacco 03/27/24 10:40 e-Cigarette/Vaping Use Never Used 03/27/24 10:40 Thrive Assessment: Date of Thrive Assessment Date Thrive assessed 03/27/24 03/27/24 10:40 Currently or been in a relationship where the following occur: No concerns reported Coding
--- NOTE | 2024-08-15 09:44 | A.OFFPC_ITS ---
Intake Visit Reasons: cold sore, medication Allergies No Known Allergies Allergy (Verified 08/15/24 09:27) Medication List - Last Reconciled 08/15/24 by Selene Varela MD losartan 100 mg PO DAILY 90 days valacyclovir 1,000 mg PO BID Tobacco use date assessed: 03/27/24 Dental Screening Dental Screen Date: 03/27/24 HPI cold sore, medication HPI Details Patient is 38 year old female has been having frequent flare of cold sores she has been getting medication from another provider that she is no longer seeing we did blood test which showed + herpes 1 Antibodies she is getting flare up more than 5 times a yaer Valacyclovir sent 500 mg to be taken daily we will reassess the need at her up coming apt in September [facility] Medical History Hypertension, essential Surgical History No pertinent past surgical history Social History Housing: House Alcohol intake: current Alcohol intake frequency: a few times a month Patient Tobacco Use Status: Never used Tobacco e-Cigarette/Vaping Use: Never Used Second Hand Smoke Exposure: No service: No Current occupational status: employed Cognitive needs: No Hearing needs: No Vision needs: No Questionnaire Thrive Questionnaire Date Thrive assessed: 03/27/24 I am a: Patient What is your living situation today?: I have a steady place to live Within the past 12 months, did the food you bought not last and you didn't have the money to get more?: Often true Within the past 12 months, did you worry whether your food would run out before you got money to buy more?: I choose not to answer this question Do you have trouble paying for medicines?: No Do you have trouble getting transportation to medical appointments?: No Do you have trouble paying your heating and electricity bill?: No Do you have trouble taking care of your child, family member or friend?: No Do you have trouble with day-to-day activities such as bathing, preparing meals, shopping, managing finances, etc.?: No Are you currently unemployed and looking for a job?: No Are you interested in more education?: No Please select the resources that you would like help with: None Currently or been in a relationship where the following occur: No concerns repor jazlyn THRIVE Score: 1 AUDIT C Alcohol Use Questionnaire (AUDIT-C) 2. How many drinks containing alcohol do you have on a typical day when you are drinking?: 1 or 2 3. How often do you have six or more drinks on one occasion?: Never Total Score: 0 PRINCESS-7 AMB Questionnaire PRINCESS-7 Date PRINCESS - 7 assessed: 03/27/24 Source: Developed by Drs. Tony Kuo, Gertrude Ugalde, Vignesh Collazo and colleagues, with an educational gianni from [employer]. Review of Systems Const Details: Negative except as listed in HPI Physical exam (Primary Care) Tobacco/Smoking Status: Tobacco use Status Tobacco use date assessed 03/27/24 03/27/24 10:40 Patient Tobacco Use Status Never used Tobacco 03/27/24 10:40 e-Cigarette/Vaping Use Never Used 03/27/24 10:40 Thrive Assessment: Date of Thrive Assessment Date Thrive assessed 03/27/24 03/27/24 10:40 Currently or been in a relationship where the following occur: No concerns reported Telehealth Telehealth Telehealth Platform: [facility] Location of provider rendering services: practice address Location of patient: address on file Patient Identification confirmed using: Name, : Yes Telehealth method: voice only Patient verbally consented to treatment: Yes Patient verbally consented to billing insurance company: Yes Patient informed of any privacy concerns related to visit: Yes Minutes spent on Phone/Video with Pt.: 12 Coding Level of Care Code Tele Est Pt Level 3 (30567) Diagnoses Recurrent cold sores B00.1 Assessment & Plan Assessment & Plan (1) Recurrent cold sores: Code(s): B00.1 - Herpesviral vesicular dermatitis Category: Medical Plan Patient is 38 year old female has been having frequent flare of cold sores she has been getting medication from another provider that she is no longer seeing we did blood test which showed + herpes 1 Antibodies she is getting flare up more than 5 times a yaer Valacyclovir sent 500 mg to be taken daily we will reassess the need at her up coming apt in September Medications: Changed From valacyclovir 1,000 mg PO BID 7 tabs 0RF To valacyclovir 500 mg PO .qd 90 days 90 tabs 0RF
== END 2024-08-15 09:54 | disposition home or self-care (01) ==
LOC: HO.HMCC 08:15
PROVIDERS: PCP Internal Medicine; Visit Provider Internal Medicine
DX: B00.1 Herpesviral vesicular dermatitis (principal)

== ENCOUNTER → 2024-08-15 08:15 | Outpatient (BNVA) | payer OTHER, SELFPAY | PROVIDERS: PCP Internal Medicine; Visit Provider Internal Medicine ==

== ENCOUNTER 2024-09-25 08:34 | Outpatient (REF) | payer OTHER, SELFPAY ==
--- OUTSIDE RECORDS SUMMARY | 2024-09-25 09:34 | XMS_ITS | Clinical Summary ---
Author Organization [facility], Address [address] [place] [address] [place] [address] Phone Care Team Providers Care Coding Machine Operator Name Role Phone Selene Varela MD Primary Care Provider [phone] Allergies No known active allergies Medications hydroCHLOROthiaz [...] patient's age to complete this topic Insurance [facility] Care Teams Coding Machine Operator Relationship Specialty Start Date End Date Selene Varela MD [address] [place] [address] [phone] PCP - General Internal Medicine 08/21/20
[2024-09-25 10:43] LABS: MANUAL DIFF FLAG NO
[2024-09-25 10:55] LABS: Basophils Percent Auto 0.5 % (0-2); Eosinophils Absolute Auto 0.1 X10*3/uL (0.0-0.4); Eosinophils Percent Auto 1.5 % (0-4); Hematocrit 38.2 % (37.0-47.0); Hemoglobin 13.1 g/dl (12.0-16.0); Imm Gran Abs Auto 0.01 X10*3/uL (0.00-0.03); Imm Gran Pct Auto 0.2 % (0.0-0.4); Lymphocytes Absolute Auto 1.5 X10*3/uL (1.2-4.9); Lymphocytes Percent Auto 24.6 % (20-40); Mean Corpuscular HGB Conc 34.3 g/dl (31.0-35.0); Mean Corpuscular Hemoglobin 30.7 pg (27.0-33.0); Mean Corpuscular Volume 89.5 fL (80.0-98.0); Mean Platelet Volume 11.2 fL (9.4-12.3); Monocytes Absolute Auto 0.5 X10*3/uL (0.1-1.2); Monocytes Percent Auto 7.7 % (2-11); Neutrophils Absolute Auto 3.9 x10*3/uL (2.0-8.3); Neutrophils Percent Auto 65.5 % (45-73); Platelet Count 235 X10*3/uL (160-400); Red Blood Count 4.27 X10*6/uL (4.20-5.50); Red Cell Distribution Width 12.7 % (11.0-16.0); White Blood Count 5.9 X10*3/uL (4.8-10.8)
[2024-09-25 11:33] LABS: Alanine Aminotransferase 7 U/L (0-31); Albumin Level 4.1 g/dL (3.5-5.0); Alkaline Phosphatase 65 U/L (39-117); Anion Gap 9 (12-20); Aspartate Amino Transferase 14 U/L (5-31); Bilirubin Total 0.5 mg/dL (0.0-1.0); Blood Urea Nitrogen 12 mg/dL (9-16); Calcium 8.9 mg/dL (8.4-10.2); Carbon Dioxide 24 mmol/L (22-29); Chloride 111 mmol/L (96-108); Cholesterol 151 mg/dL (<200); Estimated Glomerular Filt Rate > 60; Glucose Fasting 91 mg/dL (60-99); HDL Cholesterol 50 mg/dL (>40); LDL Cholesterol Calculated 89 mg/dL (<100); Potassium 3.9 mmol/L (3.3-5.1); Sodium 140 mmol/L (135-145); Total Protein 6.8 g/dL (6.5-8.0); Triglycerides 61 mg/dL (<150)
== END 2024-09-25 08:35 | disposition home or self-care (01) ==
LOC: HO.HMGCLDS 08:34
PROVIDERS: PCP Internal Medicine; Visit Provider Internal Medicine
DX: I10 Essential (primary) hypertension (principal); B00.1 Herpesviral vesicular dermatitis; R22.41 Localized swelling, mass and lump, right lower limb
CPT/HCPCS: 36415; 80053; 80061; 85025; 96127; 99212

== ENCOUNTER 2024-09-25 08:34 | Outpatient (AMB) | payer OTHER, SELFPAY ==
[2024-09-25 08:37] VITALS: BP 120/72; PULSE 83; RESP 15; TEMP 36.7; O2SAT 100; BMI 25.7
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
--- OUTSIDE RECORDS SUMMARY | 2024-09-25 09:09 | XMS_ITS | Clinical Summary ---
Author Organization [facility], Address [address] [place] [address] [place] [address] Phone Care Team Providers Care Brinell Tester Name Role Phone Selene Varela MD Primary Care Provider [phone] Allergies No known active allergies Medications hydroCHLOROthiaz dylan (HYDRODIURIL) 12.5 MG tablet Take 12.5 mg by mouth 1 (one) time each day 06/29/2020 Active losartan (COZAAR) 100 MG tablet 08/19/2020 Active losartan (COZAAR) 50 MG tablet Take 50 mg by mouth 1 (one) time each day 08/02/2020 Active spironolactone (ALDACTONE) 25 MG tablet 08/19/2020 Active Active Problems Problem Noted Date Diagnosed Date Essential (primary) hypertension 09/29/2020 Family History Medical History Relation Comments Diabetes Paternal Grandfather Relation Status Comments Paternal Grandfather Social History Tobacco Use Types Packs/Day Years Used Date Smoking Tobacco: Never Smokeless Tobacco: Never Comments Unknown Sex and Gender Information Value Date Recorded Sex Assigned at Not on file Legal Sex Female 2:41 PM EST Gender Identity Not on file Sexual Orientation Not on file Plan of Treatment Health Maintenance Due Date Last Done Comments Hepatitis B Vaccine (1 of 3 - 19+ 3-dose series) 12/24/2002 Influenza Vaccine (#1) 2024 Pneumococcal Vaccine: Pediat rics (0 to 5 Years) and At-Risk Patients (6 to 64 Years) Aged Out No longer eligi ble based on patient's age to complete this topic Insurance [facility] Care Teams Brinell Tester Relationship Specialty Start Date End Date Selene Varela MD [address] [place] [address] [phone] PCP - General Internal Medicine 08/21/20
== END 2024-09-25 08:56 | disposition home or self-care (01) ==
PROVIDERS: PCP Internal Medicine; Visit Provider Internal Medicine
DX: I10 Essential (primary) hypertension (principal); B00.1 Herpesviral vesicular dermatitis; R22.41 Localized swelling, mass and lump, right lower limb

== ENCOUNTER 2025-04-09 12:26 | Outpatient (AMB) | payer OTHER, SELFPAY ==
[2025-04-09 12:33] VITALS: BP 118/70; PULSE 82; TEMP 36.7; O2SAT 98; BMI 23.7
--- NOTE | 2025-04-09 12:33 | A.OFFPC_ITS ---
Vital Signs 04/09/25 12:33 Height 5 ft 6 in Weight 147 lb BMI 23.7 BP 118/70 Blood Pressure Location Lt brachial Position Sitting Pulse 82 Pulse Source Pulse Oximeter Temp 98.0 F Temp Source Oral Pulse Oximetry (%) 98 Intake Visit Reasons: PE Eyeglass Maker Required: No Accompanied by: Self / Same As Patient Allergies No Known Allergies Allergy (Verified 04/09/25 12:33) Medication List - Last Reconciled 04/09/25 by Selene Varela MD losartan 100 mg PO DAILY 90 days valacyclovir 500 mg PO .qd 90 days Tobacco use date assessed: 09/25/24 Dental Screening Dental Screen Date: 09/25/24 HPI PE HPI Details History of Present Illness The patient is a 39-year-old female presenting for a physical examination and laboratory testing. Essential Hypertension: - Current status: Well-controlled with a blood pressure reading of 118/70 mmHg. - Medication adherence: Patient is naomi nuing to take Losartan without experiencing adverse effects such as lightheadedness or dizziness. - Monitoring: Regular laboratory tests e very six months to monitor kidney function and cholesterol levels due to medication use. Seasonal Allergic Rhinitis: - Past occurrence: Patient usually exper iences allergies around fall each year. - Symptoms: Includes nasal congestion, s neezing, and clear nasal discharge. Occasionally, a mild cough is experienced, possibly due to mild bronchospasm.she has history of asthma when young - Previous treatment: Use of Flonase for nasal symptoms has been helpful. Medical History: - Essential Hypertension - Seasonal Allergic Rhinitis - History of Childhood Asthma Social History: - Patient inquired about healthcare opti ons for her 20-year-old son for transition to adult care. Health Maintenance - Mammogram completed in December through [facility]PER[facility]. - Regular monitoring of cholesterol leve ls and kidney function due to antihypertensive medication use. Knik of Care - OBGYN involved in patient care, handli ng orders for mammogram and breast examinations. Patient Instructions - Continue taking Losartan as prescribed . - Use Flonase for nasal allergy symptoms . - Consider adding Claritin or Zyrtec for systemic allergy relief. - Plan for laboratory tests with fasting as per prior orders placed. - Return for office visit in six months and schedule annual physical. Review of Systems - General: No fever no chills - Neurological: No headaches no dizzin ess - Ear nose throat: No sore throat no hearing difficulty no ear pain - Cardiovascular: No syncope, no chest pain, no palpitations - Gastrointestinal: No nausea vomiting or diarrhea - Endocrine: No polyuria polydipsia no heat intolerance - Genitourinary: No dysuria - Skin: No new complaints Physical Exam General: Cooperative, healthy appearing, comfortable, no acute distress Orientation: Patient oriented x3 Head: Normal to inspection Ears: Within normal limit visually, no ear pain reported Nose: Normal external nose present, experiencing nasal congestion and clear nasal discharge due to allergies Face and sinus: Normal facial exam Eyes: Appearance normal, extraocular movement intact pupils reactive Neck: Normal visual inspection and supple, thyroid checked Respiratory: Normal respiratory effort and able to speak in complete sentences. Clear to auscultation, no stridor Cardiovascular: S1 and S2 RRR GI: Normal to inspection. 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 1. Little interest or pleasure in doing things: not at all 2. Feeling down, depressed, or hopeless: not at all 3. Trouble falling or staying asleep, or sleeping too much: not at all 4. Feeling tired or having little energy: not at all 5. Poor appetite or overeating: not at all 6. Feeling bad about yourself - or that you are a failure or have let yourself or your family down: not at all 7. Trouble concentrating on things, such as reading the newspaper or watching television: not at all 8. Moving or speaking so slowly that other people could have noticed. Or the opposite - being so fidgety or restless that you have been moving around a lot more than usual: not at all 9. Thoughts that you would be better off or of hurting yourself in some way: not at all Total score: 0 Depression Screening Interpretation: Negative Depression Screening Done: Yes 57673 - PHQ-9 Billing: Yes Source: Developed by Drs. Tony Kuo, Gertrude Ugalde, Vignesh Collazo and colleagues, with an educational gianni from [employer]. Thrive Questionnaire Date Thrive assessed: 09/23/24 I am a: Patient What is your living situation today?: I have a steady place to live Within the past 12 months, did the food you bought not last and you didn't have the money to get more?: Never true Within the past 12 months, did you worry whether your food would run out before you got money to buy more?: Never true Do you have trouble paying for medicines?: No Do you have trouble getting transportation to medical appointments?: No Do you have trouble paying your heating and electricity bill?: No Do you have trouble taking care of your child, family member or friend?: No Do you have trouble with day-to-day activities such as bathing, preparing meals, shopping, managing finances, etc.?: No Are you currently unemployed and looking for a job?: No Are you interested in more education?: No Please select the resources that you would like help with: None Currently or been in a relationship where the following occur: No concerns reported THRIVE Score: 0 AUDIT C Alcohol Use Questionnaire (AUDIT-C) 1. How often do you have a drink containing alcohol?: Monthly or less 2. How many drinks containing alcohol do you have on a typical day when you are drinking?: 1 or 2 3. How often do you have six or more drinks on one occasion?: Never Total Score: 1 Score Reviewed/Action Taken: Yes PRINCESS-7 AMB Questionnaire PRINCESS-7 Date PRINCESS - 7 assessed: 04/09/25 Feeling nervous, anxious, or on edge: 0 = Not at all Not being able to stop or control worryin = Not at all Worrying too much about different things: 0 = Not at all Trouble relaxin = Not at all Being so restless that it is hard to sit still: 0 = Not at all Becoming easily annoyed or irritable: 0 = Not at all Feeling afraid as if something awful might happen: 0 = Not at all Total PRINCESS-7 score (0-4 normal; 5-9 mild; 10-14 moderate; 15-21 severe): 0 Source: Developed by Drs. Tony Kuo, Gertrude Ugalde, Vignesh Collazo and colleagues, with an educational gianni from [employer]. PRINCESS-7 Assessment Billing PRINCESS-7 Assessment Tool: PRINCESS-7 Assessment 57747 Physical exam (Primary Care) Vital Signs: Last Vital Signs Temp 98.0 F 04/09/25 12:33 Pulse 82 04/09/25 12:33 BP 118/70 04/09/25 12:33 Pulse Ox 98 04/09/25 12:33 BMI result Body Mass Index 23.7 Tobacco/Smoking Status: Tobacco use Status Tobacco use date assessed 09/25/24 04/09/25 12:36 Patient Tobacco Use Status Never used Tobacco 04/09/25 12:36 e-Cigarette/Vaping Use Never Used 04/09/25 12:36 PHQ-9: PHQ-9 Score PHQ-9: Total score 0 04/09/25 12:53 Depression Screening Interpretation: Negative Thrive Assessment: Date of Thrive Assessment Date Thrive assessed 09/23/24 04/09/25 12:36 Currently or been in a relationship where the following occur: No concerns reported Coding Level of Care Code Tele Est Pt Level 3 (09680) Est Pt Prev Care 40-64y(60394) Diagnoses Encounter for general adult medical examination with abnormal findings Z00.01 Hypertension, essential I10 Seasonal allergic rhinitis due to other allergic trigger J30.89 Allergic rhinitis trigger: other Additional Codes PRINCESS-7 Assessment Billing - PRINCESS-7 Assessment Tool: PRINCESS-7 Assessment 21773 ([id number]) PHQ-9 - 09401 - PHQ-9 Billing: Yes ([id number]) Assessment & Plan Assessment & Plan (1) Encounter for general adult medical examination with abnormal findings: Code(s): Z00.01 - Encounter for general adult medical examination with abnormal findings Category: Medical (2) Hypertension, essential: Code(s): I10 - Essential (primary) hypertension Category: Medical (3) Seasonal allergic rhinitis: Code(s): J30.2 - Other seasonal allergic rhinitis Category: Medical Qualifiers: Allergic rhinitis trigger: other Qualified Code(s): J30.89 - Other allergic rhinitis Plan History of Present Illness The patient is a 39-year-old female presenting for a physical examination and laboratory testing. Essential Hypertension: - Current status: Well-controlled with a blood pressure reading of 118/70 mmHg. - Medication adherence: Patient is continuing to take Losartan without experiencing adverse effects such as lightheadedness or dizziness. - Monitoring: Regular laboratory tests every six months to monitor kidney function and cholesterol levels due to medication use. Seasonal Allergic Rhinitis: - Past occurrence: Patient usually experiences allergies around fall each year. - Symptoms: Includes nasal congestion, sneezing, and clear nasal discharge. Occasionally, a mild cough is experienced, possibly due to mild bronchospasm.she has history of asthma when young - Previous treatment: Use of Flonase for nasal symptoms has been helpful. Medical History: - Essential Hypertension - Seasonal Allergic Rhinitis - History of Childhood Asthma Social History: - Patient inquired about healthcare options for her 20-year-old son for transition to adult care. Health Maintenance - Mammogram completed in December through OBGYN. - Regular monitoring of cholesterol levels and kidney function due to antihypertensive medication use. Knik of Care - OBGYN involved in patient care, handling orders for mammogram and breast examinations. Patient Instructions - Continue taking Losartan as prescribed. - Use Flonase for nasal allergy symptoms. - Consider adding Claritin or Zyrtec for systemic allergy relief. - Plan for laboratory tests with fasting as per prior orders placed. - Return for office visit in six months and schedule annual physical. Orders: Orders Complete Blood Count Auto Diff 6 Months I10 - Essential (primary) hypertension, J30.2 - Other seasonal allergic rhinitis, Z00.01 - Encounter for general adult medical examination with abnormal findings Comprehensive Met. Panel 6 Months I10 - Essential (primary) hypertension, J30.2 - Other seasonal allergic rhinitis, Z00.01 - Encounter for general adult medical examination with abnormal findings Medications: New fluticasone propionate 50 mcg/actuation (Flonase Allergy Relief) administer into each nostril 1 spray intranasal DAILY 16 grams 2RF cetirizine (Zyrtec) 10 mg PO DAILY PRN 90 tabs 0RF allergy symptoms
== END 2025-04-09 12:56 | disposition home or self-care (01) ==
LOC: HO.HMCC 12:27
PROVIDERS: PCP Internal Medicine; Visit Provider Internal Medicine
DX: Z00.01 Encounter for general adult medical examination with abnormal findings (principal); I10 Essential (primary) hypertension; J30.89 Other allergic rhinitis

== ENCOUNTER → 2025-04-09 12:26 | Outpatient (BNVA) | payer OTHER, SELFPAY | PROVIDERS: PCP Internal Medicine; Visit Provider Internal Medicine | DX: Z00.01 Encounter for general adult medical examination with abnormal findings (principal); I10 Essential (primary) hypertension; J30.89 Other allergic rhinitis | CPT/HCPCS: 96127; 99396 ==